=== PATIENT | male | born 1960 | race African-American/Black ===

== ENCOUNTER 2023-08-29 13:46 | Emergency (ER) | payer OTHER ==
[~2023-08-29] VITALS: Ht 182.9 cm; Wt 114.0 kg
[2023-08-29 13:51] VITALS: BP 164/94; PULSE 94; RESP 16; TEMP 98.7; O2SAT 95
[2023-08-29] MEDS ORDERED: BACITRACIN ZINC OINT UDPKT TOP ONE (14:00)
[2023-08-29] MEDS ORDERED: TETANUS, DIPHTHERIA, PERTUSSIS VAC/PF 0.5ML (>10YR OLD) IM ONE ×2 (14:00→16:00)
[2023-08-29] MEDS ORDERED: BACITRACIN ZINC OINT UDPKT TOP NR (16:00)
[2023-08-29] MEDS ORDERED: ACETAMINOPHEN 325MG TABLET PO ONE (19:15)
== END 2023-08-29 19:16 ==
LOC: ER 13:46
DX: S01.01XA Laceration without foreign body of scalp, initial encounter (principal); I10 Essential (primary) hypertension; W22.03XA Walked into furniture, initial encounter; Y93.89 Activity, other specified; Y92.89 Other specified places as the place of occurrence of the external cause; Y99.8 Other external cause status
CPT/HCPCS: 70450; 72125; 90715; 12005; 90471; 99285; Z7610 ×2